=== PATIENT | female | born 1985 | race Caucasian/White ===

== ENCOUNTER 2018-01-11 15:15 | Inpatient (IN) | payer OTHER ==
[~2018-01-11] VITALS: Ht 167.6 cm; Wt 110.7 kg
[2018-01-11 16:43] VITALS: BP 124/78
[2018-01-11] MEDS ORDERED: PREN-546 PO (17:31)
[2018-01-11] MEDS: LACTATED RINGERS 1,000 ML IV SCH (20:55)
[2018-01-11 21:09] LABS: BASOPHILS # (AUTO) 0.1 K/uL (0.00-0.22); BASOPHILS % (AUTO) 0.6 % (0.0-2.0); EOSINOPHILS # (AUTO) 0.3 K/uL (0-0.4); EOSINOPHILS % (AUTO) 3.8 % (0.0-4.0); HEMATOCRIT 37.7 % (36-48); HEMOGLOBIN 12.4 g/dL (12.0-16.0); LYMPHOCYTES # (AUTO) 1.9 K/uL (2.5-16.5); LYMPHOCYTES % (AUTO) 20.9 % (20.5-51.1); MEAN CORPUSCULAR HEMOGLOBIN 27 pg (27-31); MEAN CORPUSCULAR HGB CONC 33 g/dL (33-37); MEAN CORPUSCULAR VOLUME 81.9 fL (80-94); MONOCYTES # (AUTO) 0.4 K/uL (0.8-1.0); MONOCYTES % (AUTO) 4.1 % (1.7-9.3); NEUTROPHILS # (AUTO) 6.4 K/uL (1.8-7.7); NEUTROPHILS % (AUTO) 70.6 % (42.2-75.2); PLATELET COUNT (AUTO) 288 K/uL (140-450); RED CELL DISTRIBUTION WIDTH 14.7 % (11.6-13.7); WHITE BLOOD COUNT (AUTO) 9.1 K/uL (4.8-10.8)
[2018-01-11 21:31] LABS: APPEARANCE,URINE CLEAR (CLEAR); BILIRUBIN,URINE NEGATIVE (NEGATIVE); BLOOD, URINE 3+ (NEGATIVE); COLOR,URINE YELLOW (YELLOW); LEUKOCYTE ESTERASE ,URINE NEGATIVE (NEGATIVE); NITRITE, URINE NEGATIVE (NEGATIVE); UGLUCOSE NEGATIVE (NEGATIVE)
[2018-01-11 21:41] LABS: ALBUMIN 2.4 g/dL (3.4-5.0); ANION GAP 9.5 (8-16); CARBON DIOXIDE 21.1 mmol/L (21-32); CREATININE 0.7 mg/dL (0.6-1.3); POTASSIUM 3.6 mmol/L (3.5-5.1); TOTAL BILIRUBIN 0.3 mg/dL (0.0-1.0)
[2018-01-11 21:48] LABS: RBC,URINE 0-5 (RARE) /HPF (0-5)
[2018-01-11 21:49] LABS: WBC,URINE NONE SEEN /HPF (0-5)
[2018-01-12] MEDS: LACTATED RINGERS 1,000 ML IV SCH ×4 (05:27→13:45)
[2018-01-12] MEDS ORDERED: NALBUPHINE 10 MG/ML AMP IVP PRN (05:30)
[2018-01-12] MEDS ORDERED: OXYTOCIN 20 UNITS in LACTATED RINGERS 1,000 ML IV SCH ×3 (05:30→19:22)
[2018-01-12] MEDS ORDERED: CARBOPROST 250 MCG/ML AMP IM PRN ×3 (05:30→09:35)
[2018-01-12] MEDS ORDERED: OXYTOCIN 10 UNITS/ML VIAL IM PRN (05:30)
[2018-01-12] MEDS ORDERED: METHYLERGONOVINE 0.2 MG/ML AMP IM PRN (05:30)
[2018-01-12] MEDS ORDERED: OXYTOCIN 20 UNITS/LR PREMIX 1,000 ML IV ONE (06:11)
[2018-01-12] MEDS ORDERED: ROPIVACAINE 0.2%/NS PREMIX 250 ML EPI ONE (07:47)
--- NOTE | 2018-01-12 08:54 | NUR ---
PATIENT HAS BEEN SCREENED AND CATEGORIZED LOW NUTRITION RISK. PATIENT WILL BE SEEN WITHIN 7 DAYS OF ADMISSION. 01/18/[address]
[2018-01-12] MEDS ORDERED: OXYTOCIN 10 UNITS/ML VIAL ONE (12:57)
[2018-01-12] MEDS ORDERED: LIDOCAINE 2% 1000 MG/50 ML VIAL INJ ONE (12:58)
[2018-01-12] MEDS ORDERED: METHYLERGONOVINE 0.2 MG/ML AMP ONE (13:19)
[2018-01-12] MEDS ORDERED: BISACODYL 5 MG TABEC PO PRN (15:30)
[2018-01-12] MEDS ORDERED: ACETAMINOPHEN 325 MG TAB PO PRN ×2 (15:30→19:25)
[2018-01-12] MEDS ORDERED: DOCUSATE SODIUM 100 MG GELCAP PO PRN (15:30)
[2018-01-12] MEDS ORDERED: BENZOCAINE/MENTHOL 20%-0.5% 60 GM CAN TP PRN (15:30)
[2018-01-12] MEDS ORDERED: SODIUM PHOSPHATE 118 ML ENEM RC PRN (15:30)
[2018-01-12] MEDS ORDERED: MEASLES, MUMPS, AND RUBELLA 1 VIAL SQVAC PRN ×2 (15:30→19:25)
[2018-01-12] MEDS ORDERED: IBUPROFEN 600 MG TAB PO PRN (19:25)
[2018-01-12] MEDS: oxyCODONE/APAP 5/325 MG 1 TAB TAB PO PRN (20:55)
[2018-01-13] MEDS: IBUPROFEN 600 MG TAB PO PRN ×2 (00:11→07:46)
[2018-01-13] MEDS: oxyCODONE/APAP 5/325 MG 1 TAB TAB PO PRN ×2 (04:05→19:26)
[2018-01-13 08:22] LABS: BASOPHILS % (AUTO) 0.4 % (0.0-2.0); EOSINOPHILS # (AUTO) 0.2 K/uL (0-0.4); EOSINOPHILS % (AUTO) 2.6 % (0.0-4.0); HEMATOCRIT 31.6 % (36-48); HEMOGLOBIN 10.6 g/dL (12.0-16.0); LYMPHOCYTES # (AUTO) 2.1 K/uL (2.5-16.5); LYMPHOCYTES % (AUTO) 25.9 % (20.5-51.1); MEAN CORPUSCULAR HEMOGLOBIN 28 pg (27-31); MEAN CORPUSCULAR HGB CONC 34 g/dL (33-37); MONOCYTES # (AUTO) 0.3 K/uL (0.8-1.0); NEUTROPHILS # (AUTO) 5.4 K/uL (1.8-7.7); NEUTROPHILS % (AUTO) 67.1 % (42.2-75.2); PLATELET COUNT (AUTO) 266 K/uL (140-450); RED BLOOD CELL COUNT(AUTO) 3.86 MIL/uL (4.20-5.40); RED CELL DISTRIBUTION WIDTH 14.9 % (11.6-13.7)
[2018-01-14] MEDS: oxyCODONE/APAP 5/325 MG 1 TAB TAB PO PRN (03:55)
[2018-01-14] MEDS: IBUPROFEN 600 MG TAB PO PRN (13:07)
== END 2018-01-14 18:30 | disposition home or self-care (01) | DRG 560 ==
LOC: MLD 15:15 → MFCC 01-12 17:40
PROVIDERS: ADMIT Obstetrics & Gynecology; ATTEND Obstetrics & Gynecology
PROC: 10E0XZZ Delivery of Products of Conception, External Approach (ICD-10-PCS; principal; 2018-01-12)
PROC: 3E0R3BZ Introduction of Anesthetic Agent into Spinal Canal, Percutaneous Approach (ICD-10-PCS; 2018-01-12)
PROC: 00HU33Z Insertion of Infusion Device into Spinal Canal, Percutaneous Approach (ICD-10-PCS; 2018-01-12)
DX: O69.81X0 Labor and delivery complicated by cord around neck, without compression, not applicable or unspecified (principal); O77.0 Labor and delivery complicated by meconium in amniotic fluid; Z37.0 Single live birth; Z3A.39 39 weeks gestation of pregnancy
CPT/HCPCS: 36415; 51702; 76805; 80053; 81001; 85025; 86592; 86886; 86900; 86901; J2001; J2210; J2590; J2795; J7120; Q0092